=== PATIENT | male | born 1980 | race Caucasian/White ===

== ENCOUNTER → 2023-11-10 | Outpatient (CLI) | payer OTHER ==
[~2023-11-10] MED LIST: CEPHALEXIN500 M1 PO; HYDROCODONE BIT1 T11 PO; Motrin,Rufen800 MG PO; PEN-VEE K500 MG PO; TYLENOL W/CODEI1 TA2 PO
== END | disposition home or self-care (01) ==
LOC: CARD 08:07
PROVIDERS: ATTEND Internal Medicine Cardiovascular Disease
DX: R06.09 Other forms of dyspnea (principal); R42 Dizziness and giddiness